=== PATIENT | female | born 1990 | race Caucasian/White ===

== ENCOUNTER 2018-06-03 10:07 | Emergency (ER) | payer MEDICAID ==
[~2018-06-03] VITALS: Ht 152.4 cm; Wt 41.0 kg
[2018-06-03 10:12] VITALS: BP 160/107
[2018-06-03] MEDS ORDERED: CARB200T4 PO (10:27)
[2018-06-03] MEDS ORDERED: DOCU100C33 PO (10:35)
[2018-06-03] MEDS ORDERED: acyclovir TP (10:35)
[2018-06-03] MEDS ORDERED: KETO15CR17 TP (10:35)
[2018-06-03] MEDS ORDERED: CLON0.1T22 PO (10:35)
[2018-06-03] MEDS ORDERED: MEDR150D3 IM (10:35)
[2018-06-03] MEDS ORDERED: LORA5TAB4 PO (10:35)
[2018-06-03] MEDS ORDERED: MULT-185 PO (10:35)
[2018-06-03] MEDS ORDERED: CLOT15CR4 TP (10:35)
[2018-06-03] MEDS ORDERED: CLON0.2T PO (10:35)
[2018-06-03] MEDS ORDERED: gabapentin PO (10:35)
--- NOTE | 2018-06-03 10:42 | NUR ---
pt to ed with caregiver for constipation. caregiver states lbm 12 days ago. pt has hx of cerebral palsy, alcohol syndrome and drug syndrome and is non verbal and weak at [place]. edmd assessment complete and orders received. awaiting xr.
--- NOTE | 2018-06-03 11:01 | NUR ---
pt to xr
--- NOTE | 2018-06-03 11:10 | NUR ---
pt back from xr
--- NOTE | 2018-06-03 11:18 | NUR ---
xr results back at this time. chart up for recheck. pt resting in room with caregiver at bedside.
--- NOTE | 2018-06-03 12:00 | NUR ---
new orders received. [facility], avon enema not in stock. attemping to call central supply now.
--- NOTE | 2018-06-03 12:30 | NUR ---
enema in process.
--- NOTE | 2018-06-03 14:21 | NUR ---
enema complete with moderate success. father at bedside. awaiting dispo.
--- NOTE | 2018-06-03 14:30 | NUR ---
EDMD TO BEDSIDE TO UPDATE ON POC. AWAITING DISPO.
[2018-06-03] MEDS ORDERED: MAGNESIUM CITRATE 300ML ORAL SOL ONE (14:43)
[2018-06-03] MEDS ORDERED: MAGNESIUM CITRATE 300ML ORAL SOL PO ONE (15:00)
== END 2018-06-03 15:00 | disposition home or self-care (01) ==
LOC: ED 12:47
DX: K59.00 Constipation, unspecified (principal)
CPT/HCPCS: 74021; 99283